=== PATIENT | male | born 1975 | race Hispanic/Latino ===

== ENCOUNTER 2022-03-21 16:59 | Emergency (ER) | payer SELFPAY ==
[~2022-03-21] VITALS: Ht 165.1 cm; Wt 83.9 kg
== END 2022-03-21 18:19 | disposition home or self-care (01) ==
LOC: ER 17:29
DX: M54.31 Sciatica, right side (principal); F17.210 Nicotine dependence, cigarettes, uncomplicated
CPT/HCPCS: 99282

== ENCOUNTER 2023-10-07 12:06 | Emergency (ER) | payer SELFPAY ==
[~2023-10-07] VITALS: Ht 165.1 cm; Wt 83.9 kg
[2023-10-07] MEDS ORDERED: KETOROLAC TROMETHAMINE 30 MG/ML VIAL IM STA (12:26)
[2023-10-07] MEDS ORDERED: TRAMADOL HCL 50 MG TAB ONE (12:36)
[2023-10-07] MEDS ORDERED: KETOROLAC TROMETHAMINE 30 MG/ML VIAL ONE (12:36)
[2023-10-07] MEDS ORDERED: TRAMADOL HCL 50 MG TAB PO ONE (13:00)
[2023-10-07] MEDS ORDERED: PREDNISONE20 MG PO (13:17)
[2023-10-07] MEDS ORDERED: KETOROLAC TROME10 MG PO (13:18)
[2023-10-07 13:29] VITALS: O2SAT 99
== END 2023-10-07 13:28 | disposition home or self-care (01) ==
LOC: FSED 12:22
DX: R20.0 Anesthesia of skin (principal); M54.41 Lumbago with sciatica, right side; M79.651 Pain in right thigh; M79.661 Pain in right lower leg
CPT/HCPCS: 72100; 99283; J1885